=== PATIENT | male | born 1940 | race Caucasian/White ===

== ENCOUNTER 2017-06-01 08:56 | Emergency (ER) | payer OTHER ==
[~2017-06-01] VITALS: Ht 170.2 cm; Wt 68.0 kg
[~2017-06-01 08:56] MED LIST: AMLODIPINE BESYL5 MG; AMLODIPINE BESYL5 MG PO; ANTIVERT PO; ATARAX PO; BACTRIM DS TABL1 TA1 PO; CIPRO250 M1 PO; FLOMAX0.4 M1 PO; KEFLEX500 MG PO; LORTAB 5/500 TA1 TA1 PO; LORTAB 7.5-3251 EACH PO; MOBIC; MOBIC PO; MULTI VITAMIN1 EACH; MULTI VITAMIN1 EACH PO; MULTI-VITAMIN1 EAC1 PO; NEURONTIN; NORCO1 TAB 10/3; PREDNISONE PO; SIMVASTATIN40 MG; ULTRAM PO; ZOFRANODT PO
[2017-06-01 10:01] LABS: URINE SOURCE CLEAN CATCH
[2017-06-01 10:08] LABS: URINE APPEARANCE CLEAR; URINE BILIRUBIN NEG (NEG); URINE BLOOD NEG (NEG); URINE COLOR YELLOW; URINE GLUCOSE NEG (NEG); URINE KETONE NEG (NEG); URINE LEUKOCYTE ESTERASE NEG (NEG); URINE NITRATE NEG (NEG); URINE PROTEIN NEG (NEG); URINE SPECIFIC GRAVITY 1.016 (1.003-1.035); URINE UROBILINOGEN 0.2 MG/DL (NEG)
[2017-06-01 10:12] LABS: CULTURE INDICATED? NO
== END 2017-06-01 10:31 | disposition home or self-care (01) ==
LOC: CED 08:56
PROVIDERS: Physician Assistant Medical
DX: R35.0 Frequency of micturition (principal); I10 Essential (primary) hypertension
CPT/HCPCS: 81003; 99283